=== PATIENT | female | born 1965 | race Caucasian/White ===

== ENCOUNTER → 2016-10-17 | Outpatient (CLI) | payer BC ==
--- NOTE | 2016-10-17 13:03 | RADRPT ---
PROCEDURE: Chest Radiograph. CLINICAL INDICATION: Preop TECHNIQUE: Single frontal chest radiograph. COMPARISON: None available FINDINGS: The cardiomediastinal silhouette is within normal limits. No infiltrate or effusion is seen. Th e bones are intact. IMPRESSION: 1. Unremarkable chest radiograph. RPTAT: KK .Bhupendra Sharpe MD, MD Date Time Electronically viewed and signed by .Bhupendra Sharpe MD, on 10/17/2016 13:03 .B/
[2016-10-17 13:12] LABS: ADD SCAN DIFF NO
[2016-10-17 13:14] LABS: BASOPHILS % 0.5 % (0.0-2.0); EOSINOPHILS # 0.2 10^3/ul (0.0-0.5); EOSINOPHILS % 2.2 % (0.0-7.0); HEMATOCRIT 41.3 % (37.0-47.0); HEMOGLOBIN 13.8 g/dl (12.0-16.0); LYMPHOCYTES % 26.4 % (15.0-51.0); MEAN CORPUSCULAR HEMOGLOBIN 29.3 pg (29.0-33.0); MEAN CORPUSCULAR HGB CONC 33.4 g/dl (32.0-37.0); MEAN CORPUSCULAR VOLUME 87.7 fl (82.0-101.0); MEAN PLATELET VOLUME 9.7 fl (7.4-10.4); MONOCYTE # 0.5 10^3/ul (0.3-0.9); MONOCYTES % 6.2 % (0.0-11.0); NEUTROPHIL # 4.9 10^3/ul (1.6-7.5); NEUTROPHILS % 64.6 % (39.0-77.0); PLATELET COUNT 391 10^3/UL (140-415); RED BLOOD COUNT 4.71 10^6/ul (4.20-5.40); RED CELL DISTRIBUTION WIDTH 12.5 % (11.5-14.5); WHITE BLOOD COUNT 7.6 10^3/ul (4.8-10.8)
[2016-10-17 13:15] LABS: ADD UMIC YES; URINE BILIRUBIN (Dip) NEGATIVE (NEGATIVE); URINE BLOOD (Dip) 3+ (NEGATIVE); URINE COLOR LT. YELLOW (YELLOW); URINE GLUCOSE (Dip) NEGATIVE (NEGATIVE); URINE KETONES (Dip) NEGATIVE (NEGATIVE); URINE LEUKOCYTE ESTERASE (Dip) 1+ (NEGATIVE); URINE NITRITE (Dip) NEGATIVE (NEGATIVE); URINE TOTAL PROTEIN (Dip) NEGATIVE (NEGATIVE); URINE UROBILINOGEN (Dip) 0.2 E.U./dL (0.1-1.0)
[2016-10-17 13:24] LABS: ALBUMIN 4.5 g/dl (3.3-4.9); INR 0.89; PT RATIO 0.9
[2016-10-17 13:25] LABS: PARTIAL THROMBOPLASTIN TIME 27.7 Sec (25.0-35.0); POTASSIUM 4.5 mmol/L (3.5-5.1)
[2016-10-17 13:27] LABS: BILIRUBIN,INDIRECT 0.2 mg/dl (0-1.1); BILIRUBIN,TOTAL 0.2 mg/dl (0.2-1.3); CREATININE 0.73 mg/dl (0.44-1.00); TOTAL PROTEIN 7.6 g/dl (6.1-8.1)
[2016-10-17 13:28] LABS: CALCIUM 9.7 mg/dl (8.4-10.2)
[2016-10-17 13:42] LABS: BACTERIA,URINE MODERATE; URINE RBCS >200 /HPF (0)
--- NOTE | 2016-10-18 19:17 | RADRPT ---
Vent Rate: 62 bpm RR Interval: 0 msec [place] Interval: 174 msec QRS Duration: 78 msec QT Interval: 432 msec QTC Interval: 438 msec P-R-T [place]: 30 - 83 - 74 degrees Normal sinus rhythm Normal ECG Electronically Signed By: Christian Patton [id number]
== END | disposition home or self-care (01) ==
LOC: LAB 09:00 → EDSTATUS 10-20 10:56
PROVIDERS: ATTEND Family Medicine
DX: Z01.818 Encounter for other preprocedural examination (principal)
CPT/HCPCS: 71010; 80048; 80076; 81001; 81003; 82306; 85025; 85610; 85730; 93005